=== PATIENT | female | born 1985 | race Caucasian/White ===

== ENCOUNTER 2023-03-16 00:41 | Emergency (ER) | payer MEDICAID ==
[2023-03-16] MEDS ORDERED: Sulfamethoxazole/Trimethoprim 800-160 MG Tab PO ONE (01:09)
[2023-03-16] MEDS ORDERED: Doxycycline Monohydrate 100 MG Cap PO ONE (01:09)
[2023-03-16] MEDS ORDERED: oxyCODONE 5 MG Tab PO ONE (01:21)
[2023-03-16 01:44] VITALS: BP 126/109; PULSE 100
== END 2023-03-16 01:33 | disposition home or self-care (01) ==
LOC: JD.ED 00:41
DX: L72.9 Follicular cyst of the skin and subcutaneous tissue, unspecified (principal); F17.210 Nicotine dependence, cigarettes, uncomplicated; Z88.0 Allergy status to penicillin; Z88.8 Allergy status to other drugs, medicaments and biological substances; Z79.899 Other long term (current) drug therapy; W57.XXXA Bitten or stung by nonvenomous insect and other nonvenomous arthropods, initial encounter
CPT/HCPCS: 99282; A9270; 99283

== ENCOUNTER 2023-08-19 06:37 | Emergency (ER) | payer SELFPAY ==
[2023-08-19] MEDS: Diphtheria,Pertussis(Acell),Tetanus Vaccine 0.5 ML Syringe IM ONE (08:25)
[2023-08-19] MEDS: Ketorolac 60 MG/2 ML SDV IM ONE (08:25)
[2023-08-19] MEDS: Sulfamethoxazole/Trimethoprim 800-160 MG Tab PO ONE (08:25)
[2023-08-19] MEDS: cefTRIAXone 1 GM Vial IM ONE (08:29)
[2023-08-19 09:55] VITALS: BP 126/85; PULSE 99
== END 2023-08-19 09:12 | disposition home or self-care (01) ==
LOC: JD.ED 06:37
DX: S01.111A Laceration without foreign body of right eyelid and periocular area, initial encounter (principal); S51.011A Laceration without foreign body of right elbow, initial encounter; S51.811A Laceration without foreign body of right forearm, initial encounter; L03.011 Cellulitis of right finger; Z88.0 Allergy status to penicillin; Z88.8 Allergy status to other drugs, medicaments and biological substances; W54.0XXA Bitten by dog, initial encounter
CPT/HCPCS: 96372; 99283; A9270; J0696; J1885